=== PATIENT | male | born 1990 | race Caucasian/White ===

== ENCOUNTER 2017-11-09 03:44 | Emergency (ER) | payer BC, OTHER ==
[2017-11-09 03:52] VITALS: BMI 28.8
[2017-11-09 03:56] VITALS: BP 125/75; PULSE 80; RESP 16; TEMP 98.6; O2SAT 100
--- NOTE | 2017-11-09 05:06 | CT ---
EXAM: CT Head Without Intravenous Contrast CLINICAL HISTORY: 27 years old, male; Pain; Other: Head injury nov 02. Now C/O pain; Additional info: Head injury 11/02, pain TECHNIQUE: Axial computed tomography images of the head/brain without intravenous contrast. All CT scans at this facility use one or more dose reduction techniques, viz.: automated exposure control; ma/kV adjustment per patient size (including targeted exams where dose is matched to indication; i.e. head); or iterative reconstruction technique. Coronal and sagittal reformatted images were created and reviewed. COMPARISON: No relevant prior studies available. FINDINGS: Brain: Unremarkable. No hemorrhage. No significant white matter disease. No edema. Ventricles: Unremarkable. No ventriculomegaly. Bones/joints: Unremarkable. No acute fracture. Soft tissues: Unremarkable. Sinuses: Unremarkable as visualized. No acute sinusitis. Mastoid air cells: Unremarkable as visualized. No mastoid effusion. IMPRESSION: No acute intracranial abnormality.
--- NOTE | 2017-11-09 05:30 | ED PDOC ---
HPI: Headache Time Seen by Provider: 11/09/17 04:07 Chief Complaint (Nursing): Headache Chief Complaint (Provider): Headache History Per: Patient History/Exam Limitations: no limitations Additional Complaint(s): 27 y/o male presents to the ED for evaluation of head injury . Patient encountered this injury on October, after alcohol consumption and loss of consciousness. Since the incident, he has had hypersensitivity to the injured area and the left temporal region. Reports having a pulling sensation. Denies numbness , weakness , tingling, loss of function, vision changes or any further medical complaints. Past Medical History Reviewed: Historical Data, Nursing Documentation, Vital Signs Vital Signs: Last Vital Signs Temp 98.6 F 11/09/17 03:51 Pulse 80 11/09/17 03:51 Resp 16 11/09/17 03:51 BP 125/75 11/09/17 03:51 Pulse Ox 100 11/09/17 03:51 - Medical History PMH: No Chronic Diseases - Surgical History Surgical History: No Surg Hx - Family History Family History: States: Unknown Family Hx - Social History Current smoker - smoking cessation education provided: Yes (Light smoker < 10 cigarettes daily) Alcohol: Other (yes) Drugs: Denies - Immunization History Hx Tetanus Toxoid Vaccination: No Hx Influenza Vaccination: No Hx Pneumococcal Vaccination: No - Home Medications Home Medications: Ambulatory Orders Medication Instructions Recorded Clotrimazole/Betamethasone 15 gm EXT BID #2 tube 08/01/14 [Lotrisone] - Allergies Allergies/Adverse Reactions: Allergies Allergy/AdvReac Type Severity Reaction Status Date / Time No Known Allergies Allergy Verified 08/01/14 15:15 Review of Systems ROS Statement: Except As Marked, All Systems Reviewed And Found Negative (As per HPI, otherwise negative) Eyes: Negative for: Vision Change Neurological: Positive for: Other (Head injury). Negative for: Weakness, Numbness Physical Exam - Reviewed Nursing Documentation Reviewed: Yes Vital Signs Reviewed: Yes - Physical Exam Appears: Positive for: Well, Non-toxic, No Acute Distress Head Exam: Positive for: ATRAUMATIC, NORMAL INSPECTION, NORMOCEPHALIC Skin: Positive for: Normal Color, Warm, Dry Eye Exam: Positive for: EOMI, Normal appearance, PERRL ENT: Positive for: Normal ENT Inspection Neck: Positive for: Normal, Painless ROM, Supple Cardiovascular/Chest: Positive for: Regular Rate, Rhythm. Negative for: Murmur Respiratory: Positive for: Normal Breath Sounds. Negative for: Accessory Muscle Use, Respiratory Distress Gastrointestinal/Abdominal: Positive for: Normal Exam, Bowel Sounds, Soft Back: Positive for: Normal Inspection Extremity: Positive for: Normal ROM. Negative for: Deformity Neurologic/Psych: Positive for: Alert, supervisor plastics II-XII, Oriented (x3), Gait (steady) . Negative for: Motor/Sensory Deficits, Mood/Affect, Cerebellar Tests, Aphasia , Facial Droop - ECG O2 Sat by Pulse Oximetry: 100 (RA) Pulse Ox Interpretation: Normal Medical Decision Making Medical Decision Making: Time: 03:52 Initial Impression: Head injury Plan: CT head w/o contrast Reevaluation Time: 05:05 CT Head FINDINGS: Brain: Unremarkable. No hemorrhage. No significant white matter disease. No edema. Ventricles: Unremarkable. No ventriculomegaly. Bones/joints: Unremarkable. No acute fracture. Soft tissues: Unremarkable. Sinuses: Unremarkable as visualized. No acute sinusitis. Mastoid air cells: Unremarkable as visualized. No mastoid effusion. IMPRESSION: No acute intracranial abnormality. Time: 05:10 Upon provider reevaluation patient is feeling better, is medically stable, and requires no further treatment in the ED at this time. Patient will be discharged home. Counseling was provided and all questions were answered regarding diagnosis. There is agreement to discharge plan. Return if symptoms persist or worsen. Clinical Impression: Head injury Scribe Attestation: Documented by Solomon Cheek acting as a scribe for Stanley Whitehead MD. Scribe Attestation: All medical record entries made by the Scribe were at my direction and personally dictated by me. I have reviewed the chart and agree that the record accurately reflects my personal performance of the history, physical exam, medical decision making, and the department course for this patient. I have also personally directed, reviewed, and agree with the discharge instructions and disposition. Disposition - Clinical Impression Clinical Impression: Headache - Disposition Disposition: Routine/Home Disposition Time: 05:10 Condition: GOOD Instructions: Minor Head Injury Forms: [facility] (Nigerian)
== END 2017-11-09 05:17 | disposition home or self-care (01) ==
LOC: H.ER 03:44
DX: S09.90XA Unspecified injury of head, initial encounter (principal); W19.XXXA Unspecified fall, initial encounter; Y92.89 Other specified places as the place of occurrence of the external cause

== ENCOUNTER 2017-11-28 02:24 | Emergency (ER) | payer BC ==
[2017-11-28 02:24] VITALS: BMI 28.8
[2017-11-28] MEDS ORDERED: Sodium Chloride 0.9% 1,000 ML IV STA (02:34)
[2017-11-28 03:14] LABS: BASO % 0.1 % (0.0-2.0); EOS # 0.2 K/uL (0.0-0.7); EOS % 1.7 % (0.0-4.0); HEMOGLOBIN 13.7 g/dL (12.0-18.0); LYMPH # 1.5 K/uL (1.0-4.3); LYMPH % 16.3 % (20.0-40.0); MEAN CELL VOLUME 86.1 fl (80.0-94.0); MEAN CORPUSCULAR HEMOGLOBIN 29.4 pg (27.0-31.0); MEAN CORPUSCULAR HGB CONC 34.1 g/dL (33.0-37.0); MEAN PLATELET VOLUME 8.5 fl (7.2-11.7); MONO # 0.8 K/uL (0.0-0.8); MONO % 8.5 % (0.0-10.0); NEUT # 6.8 K/uL (1.8-7.0); NEUT % 73.4 % (50.0-75.0); RBC 4.66 Mil/uL (4.40-5.90); RED CELL DISTRIBUTION WIDTH 12.7 % (11.5-14.5); WHITE BLOOD COUNT 9.3 K/uL (4.8-10.8)
[2017-11-28 03:20] LABS: ALB/GLOB RATIO 1.2 (1.0-2.1); ALBUMIN 4.1 g/dL (3.5-5.0); ALT/SGPT 64 U/L (21-72); AST/SGOT 31 U/L (17-59); BLOOD UREA NITROGEN 11 mg/dl (9-20); CALCIUM 8.5 mg/dL (8.4-10.2); GFR AFRICAN-AMERICAN > 60; GFR NON-AFRICAN AMERICAN > 60; LIPASE 28 U/L (23-300)
[2017-11-28] MEDS ORDERED: Iohexol 300 100 ML IJ ONE (03:26)
--- NOTE | 2017-11-28 03:27 | ED PDOC ---
HPI: Abdomen Time Seen by Provider: 11/28/17 02:31 Chief Complaint (Nursing): Abdominal Pain Chief Complaint (Provider): Abdominal Pain History/Exam Limitations: no limitations Onset/Duration Of Symptoms: Hrs (x24) Associated Symptoms: Nausea, Vomiting, Diarrhea Additional Complaint(s): 27 year old male presents to ED with complaints of abdominal pain x24 hours and has no past medical history. (+) nausea, vomiting x4 episodes, diarrhea x6 episodes, and abdominal distension. (-) fever, chills, cough, SOB, or chest pain. Patient notes onset of symptoms after eating [employer] pie. PCP: None Past Medical History Reviewed: Historical Data, Nursing Documentation, Vital Signs Vital Signs: Last Vital Signs Temp 97.7 F 11/28/17 05:03 Pulse 74 11/28/17 05:03 Resp 18 11/28/17 05:03 BP 123/73 11/28/17 05:03 Pulse Ox 100 11/28/17 05:03 - Medical History PMH: No Chronic Diseases - Surgical History Surgical History: No Surg Hx - Family History Family History: States: Unknown Family Hx - Social History Current smoker - smoking cessation education provided: Yes (<10 cigarettes daily ) Alcohol: Social Drugs: Denies - Immunization History Hx Tetanus Toxoid Vaccination: No Hx Influenza Vaccination: No Hx Pneumococcal Vaccination: No - Home Medications Home Medications: Ambulatory Orders Medication Instructions Recorded Clotrimazole/Betamethasone 15 gm EXT BID #2 tube 08/01/14 [Lotrisone] Dicyclomine [Bentyl] 20 mg PO Q12 PRN #20 tab 11/28/17 Ondansetron ODT [Zofran ODT] 4 mg PO Q6H PRN #12 odt 11/28/17 - Allergies Allergies/Adverse Reactions: Allergies Allergy/AdvReac Type Severity Reaction Status Date / Time No Known Allergies Allergy Verified 11/28/17 02:55 Review of Systems ROS Statement: Except As Marked, All Systems Reviewed And Found Negative Constitutional: Negative for: Fever, Chills Cardiovascular: Negative for: Chest Pain Respiratory: Negative for: Cough, Shortness of Breath Gastrointestinal: Positive for: Nausea, Vomiting, Abdominal Pain, Diarrhea Physical Exam - Reviewed Nursing Documentation Reviewed: Yes Vital Signs Reviewed: Yes - Physical Exam Appears: Positive for: Non-toxic, No Acute Distress Cardiovascular/Chest: Positive for: Regular Rate, Rhythm. Negative for: Tachycardia Respiratory: Positive for: Normal Breath Sounds. Negative for: Respiratory Distress Gastrointestinal/Abdominal: Positive for: Soft, Tenderness (diffuse tenderness, more present in the RLQ) Back: Positive for: Normal Inspection Neurologic/Psych: Positive for: Alert, Oriented. Negative for: Motor/Sensory Deficits - Laboratory Results Result Diagrams: 11/28/17 03:08 11/28/17 03:08 - ECG O2 Sat by Pulse Oximetry: 98 (RA) Pulse Ox Interpretation: Normal Medical Decision Making Medical Decision Makin Initial impression: abdominal pain, nausea, vomiting, and diarrhea Initial plan: * CTA A/P * Labs * Lipase * NS IV * Toradol 30mg IV * Zofran Inj 4mg IV * UA * Re-eval 0438 CT FINDINGS: The liver is normal. The spleen is normal. The pancreas is normal. No gallstones. No hydronephrosis or perinephric stranding. There is a cluster of fluid-filled distal ileal loops in the right pelvis that conceivably could represent focal ileus or focal enteritis. There is no significant wall thickening or stranding in the surrounding fat. Colonic diverticulosis is present. A normal appendix is identified coronal images 52 through 60. No aortic aneurysm or dissection. IMPRESSION: Cluster of fluid-filled distal ileal loops right lower quadrant possible early developing focal ileus or enteritis. 0511 Upon re-evaluation patient notes marked improvement in symptoms. Labs reviewed: no clinically significant abnormalities. Patient is stable for discharge. Dx: gastroenteritis Condition: improved Scribe Attestation: Documented by Azalea Luther acting as a scribe for Stefan Caraballo MD. DO Scribe Attestation: All medical record entries made by the Scribe were at my direction and personally dictated by me. I have reviewed the chart and agree that the record accurately reflects my personal performance of the history, physical exam, medical decision making, and the department course for this patient. I have also personally directed, reviewed, and agree with the discharge instructions and disposition. Disposition - Clinical Impression Clinical Impression: Gastroenteritis - Disposition Disposition: Routine/Home Disposition Time: 05:11 Condition: IMPROVED Prescriptions: Dicyclomine [Bentyl] 20 mg PO Q12 PRN #20 tab PRN Reason: abdominal pain/diarrhea Ondansetron ODT [Zofran ODT] 4 mg PO Q6H PRN #12 odt PRN Reason: Nausea/Vomiting Instructions: Gastroenteritis (ED) Forms: [facility] (Macedonian)
[2017-11-28 03:57] LABS: URINE BILIRUBIN NEGATIVE (NEGATIVE); URINE BLOOD NEGATIVE (NEGATIVE); URINE CLARITY CLEAR (Clear); URINE COLOR STRAW (YELLOW); URINE GLUCOSE (UA) NEG (Normal); URINE LEUKOCYTE ESTERASE NEG Leu/uL (Negative); URINE PROTEIN NEGATIVE (NEGATIVE); URINE UROBILINOGEN 0.2-1.0 mg/dL (0.2-1.0)
--- NOTE | 2017-11-28 04:38 | CT ---
EXAM: CT Abdomen and Pelvis With Intravenous Contrast EXAM DATE/TIME: 11/28/2017 2:34 AM CLINICAL HISTORY: 27 years old, male; Pain; Abdominal pain; Tenderness; Right lower quadrant (rlq); Additional info: Diarrhea with rlq tenderness TECHNIQUE: Axial computed tomography images of the abdomen and pelvis with intravenous contrast. All CT scans at this facility use one or more dose reduction techniques, viz.: automated exposure control; ma/kV adjustment per patient size (including targeted exams where dose is matched to indication; i.e. head); or iterative reconstruction technique. Coronal and sagittal reformatted images were created and reviewed. CONTRAST: 95 mL of omnipaque 300 administered intravenously. COMPARISON: No relevant prior studies available. FINDINGS: The liver is normal. The spleen is normal. The pancreas is normal. No gallstones. No hydronephrosis or perinephric stranding. There is a cluster of fluid-filled distal ileal loops in the right pelvis that conceivably could represent focal ileus or focal enteritis. There is no significant wall thickening or stranding in the surrounding fat. Colonic diverticulosis is present. A normal appendix is identified coronal images 52 through 60. No aortic aneurysm or dissection. IMPRESSION: Cluster of fluid-filled distal ileal loops right lower quadrant possible early developing focal ileus or enteritis.
[2017-11-28 05:05] VITALS: BP 123/73; PULSE 74; RESP 18; TEMP 97.7
[2017-11-28 05:13] VITALS: O2SAT 98
== END 2017-11-28 05:06 | disposition home or self-care (01) ==
LOC: H.ER 02:24
DX: K52.9 Noninfective gastroenteritis and colitis, unspecified (principal); K57.30 Diverticulosis of large intestine without perforation or abscess without bleeding; F17.210 Nicotine dependence, cigarettes, uncomplicated
CPT/HCPCS: 74177; 80053; 81003; 83690; 85025; 96360; 99284; J1885; J2405; J7040; Q9967